=== PATIENT | female | born 1980 | race Caucasian/White ===

== ENCOUNTER 2017-08-07 16:51 | Emergency (ER) | payer MEDICAID | END 2017-08-08 00:29 | disposition short-term general hospital (02) | LOC: D.ER 16:51 | DX: Z86.59 Personal history of other mental and behavioral disorders (principal); R45.851 Suicidal ideations; F17.200 Nicotine dependence, unspecified, uncomplicated ==

== ENCOUNTER 2018-12-31 13:57 | Emergency (ER) | payer OTHER ==
[~2018-12-31] VITALS: Ht 157.5 cm; Wt 74.1 kg
[2018-12-31 14:04] VITALS: BP 125/78; Ht 157.5 cm; Wt 74.1 kg
== END 2018-12-31 15:25 | disposition left against medical advice (07) ==
LOC: D.ER 13:57
DX: R10.30 Lower abdominal pain, unspecified (principal)

== ENCOUNTER 2019-07-03 05:34 | Emergency (ER) | payer OTHER ==
[~2019-07-03] VITALS: Ht 157.5 cm; Wt 72.7 kg
[2019-07-03 05:38] VITALS: BP 126/86; Ht 157.5 cm; Wt 72.7 kg
== END 2019-07-03 06:16 | disposition left against medical advice (07) ==
LOC: D.ER 05:34
DX: F19.10 Other psychoactive substance abuse, uncomplicated (principal); F17.200 Nicotine dependence, unspecified, uncomplicated

== ENCOUNTER 2019-07-05 13:49 | Emergency (ER) | payer OTHER ==
[~2019-07-05] VITALS: Ht 157.5 cm; Wt 72.7 kg
[2019-07-05 13:57] VITALS: Ht 157.5 cm; Wt 72.7 kg
[2019-07-05 14:37] LABS: UDS - AMPHET NEGATIVE QUAL (NEGATIVE); UDS - BARB NEGATIVE QUAL (NEGATIVE); UDS - BENZO NEGATIVE QUAL (NEGATIVE); UDS - COCAINE NEGATIVE QUAL (NEGATIVE); UDS - OPIATE NEGATIVE QUAL (NEGATIVE); UDS - PCP NEGATIVE QUAL (NEGATIVE); UDS - THC NEGATIVE QUAL (NEGATIVE)
[2019-07-05 14:40] LABS: APPEARANCE SL CLDY (CLEAR); BILIRUBIN NEGATIVE (NEGATIVE); COLOR YELLOW (YELLOW); GLUCOSE NEGATIVE (NEGATIVE); KETONE NEGATIVE (NEGATIVE); NITRITE NEGATIVE (NEGATIVE); PROTEIN TRACE mg/dL (NEGATIVE); SPECIFIC GRAVITY 1.015 (1.005-1.020)
[2019-07-05 14:41] LABS: EPITHELIAL CELLS OCC /hpf (0-5); RED CELLS - URINE 25-50 /hpf (0-5); WHITE CELLS - URINE 0-5 /hpf (0-5)
[2019-07-05 14:42] LABS: BACTERIA FEW /hpf (NONE SEEN)
[2019-07-05 14:57] LABS: BASOPHILS 0.1 % (0-2); HEMOGLOBIN 12.6 g/dL (12-16); IMMATURE GRANULOCYTES 0.2 % (0-5); MCH 32.4 pg (26.0-34.0); MCV 92.5 fL (80.0-100.0); MEAN PLATELET VOLUME 9.3 fL (7.4-10.4); MONOCYTES 6.5 % (2-11); NEUTROPHILS 69.2 % (40-80); PLATELET COUNT 183 10x3/uL (130-400); RBC 3.89 10x6/uL (4.00-5.40); WBC 9.4 10x3/uL (4.8-10.8)
[2019-07-05 15:19] LABS: ALBUMIN 3.1 g/dL (3.4-5.0); BILIRUBIN - TOTAL 0.38 mg/dL (0.2-1.3); CALCIUM 8.5 mg/dL (8.5-10.1); CARBON DIOXIDE 25.5 mmol/L (21.0-32.0); CREATININE - SERUM 0.9 mg/dL (0.6-1.3); POTASSIUM - SERUM 3.5 mmol/L (3.5-5.1); PROTEIN - SERUM 6.1 g/dL (6.4-8.2)
--- NOTE | 2019-07-05 15:51 | NUR ---
DR. DUPONT NOTIFIED AND SITTER IN LINE OF SIGHT ORDERED. SITTER IN LINE OF SIGHT. NOTIFIED CHARGE NURSE AND ATTENDING IN REGARDS TO ASSESSMENT FINDINGS. RESOURCES GIVEN TO NURSE AND SAFETY PLAN INTIATED.
[2019-07-05] MEDS ORDERED: MACROBID100 MG PO (16:31)
[2019-07-05 21:45] VITALS: BP 98/65
== END 2019-07-05 21:46 ==
LOC: D.ER 13:49
PROVIDERS: Family Medicine
DX: F32.9 Major depressive disorder, single episode, unspecified (principal); R45.851 Suicidal ideations; N39.0 Urinary tract infection, site not specified